=== PATIENT | male | born 1975 | race Caucasian/White ===

== ENCOUNTER 2023-11-30 09:46 | Day surgery (SDC) | payer MEDICAID ==
[~2023-11-30] VITALS: Ht 172.7 cm; Wt 79.4 kg
[2023-11-30 11:39] VITALS: O2SAT 99
[2023-11-30] MEDS ORDERED: OXYMETAZOLINE HCL 0.05% NASAL SPRAY NS ONE (12:14)
[2023-11-30] MEDS ORDERED: ACETAMINOPHEN I.V. 1000 MG 100 ML IV ONE (13:03)
[2023-11-30] MEDS ORDERED: LABETALOL 100 MG/ 20ML VIAL IVP PRN (13:15)
[2023-11-30] MEDS ORDERED: MEPERIDINE HCL/PF 25 MG/ML DISP.SYRIN IVP PRN (13:15)
[2023-11-30] MEDS ORDERED: METOCLOPRAMIDE HCL 10 MG/2 ML VIAL IVP PRN (13:15)
[2023-11-30] MEDS ORDERED: hydrALAZINE HCL 20 MG/ML VIAL IVP PRN (13:15)
[2023-11-30] MEDS ORDERED: HYDROmorphone 1 MG/ML INJ. CARTRIDGE IVP PRN ×2 (13:15)
[2023-11-30] MEDS ORDERED: LR 1,000 ML IV SCH (13:15)
[2023-11-30 18:11] VITALS: BP_SYST 147; PULSE 93; RESP 20
== END 2023-11-30 15:12 | disposition home or self-care (01) ==
LOC: SDS 09:46 → SMU 10:05 → SDS 15:12
PROVIDERS: ATTEND Otolaryngology
DX: D38.5 Neoplasm of uncertain behavior of other respiratory organs (principal); J32.8 Other chronic sinusitis; J34.2 Deviated nasal septum; J30.1 Allergic rhinitis due to pollen; I10 Essential (primary) hypertension; K21.9 Gastro-esophageal reflux disease without esophagitis; G43.909 Migraine, unspecified, not intractable, without status migrainosus; Z90.89 Acquired absence of other organs; Z87.891 Personal history of nicotine dependence; Z79.899 Other long term (current) drug therapy
CPT/HCPCS: 30520; 30140; 88304; 88305; J3490; J1100; J3465; J2405; J2704; J3010; J7120; L8699; J0131; 88311